=== PATIENT | male | born 1995 | race Caucasian/White ===

== ENCOUNTER 2018-02-12 06:02 | Emergency (ER) | payer MEDICAID ==
[~2018-02-12] VITALS: Ht 177.8 cm; Wt 72.6 kg
--- NOTE | 2018-02-12 06:02 | NUR ---
PT MENDEZ BRITOS. TAKEN TO BED 4
--- NOTE | 2018-02-12 06:02 | NUR ---
Dr. Alejo evaluating patient at bedside.
--- NOTE | 2018-02-12 06:02 | NUR ---
22/M BIBA W C/O ALCOHOL INTOXICATION. PER EMS PT WAS FOUND SLEEPING ON THE STREETS BY [employer]. PT IS AOX4, GCS15. PT IS SLEEPING COMFORTABLY, NO ACUTE DISTRESS NOTED AT THIS TIME. PMH: HEARING IMPAIRED
[2018-02-12 06:03] VITALS: BP 113/70
--- NOTE | 2018-02-12 07:14 | NUR ---
EKG completed at bedside by EMT.
--- NOTE | 2018-02-12 07:15 | NUR ---
RECEIVED REPORT FROM LISA COOPER AT THIS TIME.
--- NOTE | 2018-02-12 07:56 | NUR ---
PT ASLEEP AT THIS TIME IN [facility] WITH VSS AND RR EVEN AND UNLABORED. SAFETY PRECAUTIONS IN PLACE. WILL CONTINUE TO MONITOR.
[2018-02-12] MEDS ORDERED: NACL 0.9% 1,000 ML IV ONE (09:20)
[2018-02-12 09:44] LABS: BASOPHILS % (AUTO) 0.5 % (0.0-2.0); EOSINOPHILS # (AUTO) 0.1 K/uL (0-0.4); EOSINOPHILS % (AUTO) 0.7 % (0.0-4.0); HEMATOCRIT 43.7 % (36-52); HEMOGLOBIN 14.2 g/dL (12.0-18.0); LYMPHOCYTES # (AUTO) 1.2 K/uL (2.0-11.5); LYMPHOCYTES % (AUTO) 15.8 % (20.5-51.1); MEAN CORPUSCULAR HEMOGLOBIN 28 pg (27-31); MEAN CORPUSCULAR HGB CONC 33 g/dL (33-37); MEAN CORPUSCULAR VOLUME 86.4 fL (80-94); MONOCYTES # (AUTO) 0.4 K/uL (0.8-1.0); MONOCYTES % (AUTO) 5.7 % (1.7-9.3); NEUTROPHILS # (AUTO) 5.9 K/uL (1.8-7.7); NEUTROPHILS % (AUTO) 77.3 % (42.2-75.2); PLATELET COUNT (AUTO) 192 K/uL (140-450); RED BLOOD CELL COUNT(AUTO) 5.05 MIL/uL (4.20-6.10); RED CELL DISTRIBUTION WIDTH 13.7 % (11.6-13.7); WHITE BLOOD COUNT (AUTO) 7.6 K/uL (4.8-10.8)
[2018-02-12 09:53] LABS: ANION GAP 12.1 (8-16); CARBON DIOXIDE 28.7 mmol/L (21-32); CREATININE 0.9 mg/dL (0.7-1.3); POTASSIUM 3.8 mmol/L (3.5-5.1)
--- NOTE | 2018-02-12 09:55 | NUR ---
pt asleep on [facility] at this time. vss. safety precautions in place. will continue to monitor.
[2018-02-12 10:00] LABS: ALBUMIN 4.1 g/dL (3.4-5.0); TOTAL BILIRUBIN 0.7 mg/dL (0.0-1.0)
--- NOTE | 2018-02-12 10:30 | NUR ---
pt continues to sleep at this time. vss. safety precautions in place. will continue to monitor.
--- NOTE | 2018-02-12 11:14 | NUR ---
Pt unable to sit up or stand up/ambulate w/o assistance. Pt allowed to lay back down and continue to rest. er md notified. will continue to monitor.
--- NOTE | 2018-02-12 11:14 | NUR ---
Note robert in ED - 02/12/18 at 1211 by [email or web address] Pt "road tested" and unable to sit up or stand up w/o assistance. Pt allowed to lay back down and continue to rest. blossom barone notified. will continue to monitor.
--- NOTE | 2018-02-12 12:10 | NUR ---
Dr. Narayanan re-evaluating patient at bedside.
[2018-02-12 14:13] VITALS: BP 109/65
--- NOTE | 2018-02-12 14:13 | NUR ---
Patient discharged with v/s stable. Written and verbal after care instructions given and explained. Patient verbalized understanding. Ambulatory with steady gait. All questions addressed prior to discharge. Advised to follow up with PMD.
== END 2018-02-12 14:13 | disposition home or self-care (01) ==
LOC: MED 06:02
DX: F10.129 Alcohol abuse with intoxication, unspecified (principal)
CPT/HCPCS: 36415; 80053; 85025; 93005; 99285